=== PATIENT | male | born 1970 | race Caucasian/White ===

== ENCOUNTER 2018-08-15 15:00 | Day surgery (SDC) | payer OTHER ==
[2018-08-15 12:52] LABS: Anion Gap 10 mmol/L (6-16); Blood Urea Nitrogen 14 mg/dL (8-24); CO2, Blood 24 mmol/L (21-32); Calcium, Blood 8.6 mg/dL (8.5-10.1); Chloride, Blood 108 mmol/L (98-108); Creatinine, Blood 0.74 mg/dL (0.60-1.20); Glomerular Filtration Rate >60 (60-); Glucose, Blood 95 mg/dL (70-99); Sodium, Blood 142 mmol/L (136-145)
[~2018-08-15 15:00] MED LIST: AMIT75 PO
--- NOTE | 2018-08-15 15:51 | NUR ---
ACCESS CLERK RN LESLEY) AT BEDSIDE REPORT DONE.
--- NOTE | 2018-08-15 16:00 | NUR ---
IS AT BEDSIDE. PT CONTINUES TO BE IN ALOT OF PAIN.
== END 2018-08-15 19:00 | disposition home or self-care (01) ==
LOC: ORSCMMR 15:00
PROVIDERS: Orthopaedic Surgery
PROC: 0J9K0ZZ Drainage of Left Hand Subcutaneous Tissue and Fascia, Open Approach (ICD-10-PCS; principal; 2018-08-15 16:30)
DX: M79.5 Residual foreign body in soft tissue (principal); M65.842 Other synovitis and tenosynovitis, left hand; M65.042 Abscess of tendon sheath, left hand; I10 Essential (primary) hypertension; K21.9 Gastro-esophageal reflux disease without esophagitis; E66.9 Obesity, unspecified; Z68.32 Body mass index [BMI] 32.0-32.9, adult
CPT/HCPCS: 36415; 80048; 87070; 87075; 87205; 93005; 93010; A9270-GY; J0690; J1100; J1170; J1885; J2060; J2250; J2405; J3010; J7120

== ENCOUNTER 2019-02-11 11:44 | Emergency (ER) | payer OTHER ==
[~2019-02-11] VITALS: Ht 200.7 cm; Wt 122.5 kg
[2019-02-11 12:56] LABS: BASOPHILS ABSOLUTE AUTO 0.12 K/mm3 (0.00-0.23); BASOPHILS PERCENT AUTO 1 % (0-2); EOSINOPHILS ABSOLUTE AUTO 0.23 K/mm3 (0.00-0.68); EOSINOPHILS PERCENT AUTO 2 % (0-6); Hematocrit 47.8 % (37.0-53.0); Hemoglobin 16.1 g/dL (13.5-17.5); IMMATURE GRAN ABSOLUTE AUTO 0.08 K/mm3 (0.00-0.10); IMMATURE GRAN PERCENT AUTO 1 % (0-1); LYMPHOCYTES ABSOLUTE AUTO 2.05 K/mm3 (0.84-5.20); LYMPHOCYTES PERCENT AUTO 18 % (21-46); MONOCYTES PERCENT AUTO 5 % (4-13); Mean Corpuscular HGB 28.8 pg (26.0-34.0); Mean Corpuscular HGB Conc 33.7 g/dL (31.5-36.5); Mean Corpuscular Volume 86 fL (80-100); Mean Platelet Volume 8.4 fL (9.1-12.4); NEUTROPHILS PERCENT AUTO 73 % (41-73); Platelet Count 780 K/mm3 (150-400); RDW Coefficient Variation 14.5 % (11.7-14.2); RDW Standard Deviation 44.9 fL (35.1-46.3); Red Blood Cell Count 5.59 M/mm3 (4.30-5.90); White Blood Cell Count 11.48 K/mm3 (4.00-11.30)
[2019-02-11 13:20] LABS: Alanine Aminotransfer (ALT/SGP 52 U/L (12-78); Albumin, Blood 3.8 g/dL (3.4-5.0); Albumin/Globulin Ratio 1.1 (0.8-1.8); Alk Phos 72 U/L (50-136); Anion Gap 2 mmol/L (6-16); Aspartate Aminotrans (AST/SGOT 31 U/L (12-37); Bilirubin, Total 0.3 mg/dL (0.1-1.0); Blood Urea Nitrogen 17 mg/dL (8-24); CO2, Blood 28 mmol/L (21-32); Calcium, Blood 9.1 mg/dL (8.5-10.1); Chloride, Blood 108 mmol/L (98-108); Creatinine, Blood 0.85 mg/dL (0.60-1.20); Globulin, Blood 3.5 g/dL (2.2-4.0); Glomerular Filtration Rate >60 (60-); Glucose, Blood 116 mg/dL (70-99); Potassium, Blood 3.9 mmol/L (3.5-5.5); Sodium, Blood 138 mmol/L (136-145); Total Protein, Blood 7.3 g/dL (6.4-8.2)
[2019-02-11 13:29] LABS: Source, Urine Clean Catch
[2019-02-11 13:43] LABS: Bilirubin, Urine Neg (Neg); Blood, Urine Neg (Neg); Glucose Qualitative, Urine Neg (Neg); Ketones, Urine Neg (Neg); Leukocyte Esterase, Urine Neg (Neg); Nitrite, Urine Neg (Neg); Protein, Urine Neg (Neg); Urobilinogen, Urine NORM (Normal)
[2019-02-11 13:59] LABS: Appearance, Urine Clear (Clear); Color, Urine Yellow (P-Yellow)
[2019-02-11] MEDS ORDERED: AMIT10 PO (14:57)
[2019-02-11] MEDS ORDERED: CYCL10 PO (17:07)
[2019-02-11] MEDS ORDERED: LIDO700A20 TOP (17:07)
[2019-02-11] MEDS ORDERED: IBU800 MG PO (17:07)
== END 2019-02-11 17:26 | disposition home or self-care (01) ==
LOC: ER 11:44
PROVIDERS: Physician Assistant
DX: R10.9 Unspecified abdominal pain (principal)
CPT/HCPCS: 36415; 74177; 74183; 80053; 81003; 83690; 85025; 86850; 86900; 86901; 96374-59; 96375-59; 99284-25; A9581; J1170; J1885; J3010; Q9967

== ENCOUNTER → 2019-02-18 | Outpatient (CLI) | payer OTHER ==
[~2019-02-18] MED LIST changes: +AMIT10 PO; +Amitriptyline H25 MG PO; +CYCL10 PO; +DOXY100 PO; +IBU800 MG PO; +LIDO700A20 TOP; +[UNRECOGNIZED DRUG - REMARK]
[2019-02-18 14:29] LABS: BASOPHILS ABSOLUTE AUTO 0.14 K/mm3 (0.00-0.23); BASOPHILS PERCENT AUTO 1 % (0-2); EOSINOPHILS ABSOLUTE AUTO 0.24 K/mm3 (0.00-0.68); EOSINOPHILS PERCENT AUTO 2 % (0-6); Hematocrit 46.6 % (37.0-53.0); Hemoglobin 15.9 g/dL (13.5-17.5); IMMATURE GRAN ABSOLUTE AUTO 0.07 K/mm3 (0.00-0.10); IMMATURE GRAN PERCENT AUTO 1 % (0-1); LYMPHOCYTES ABSOLUTE AUTO 1.57 K/mm3 (0.84-5.20); LYMPHOCYTES PERCENT AUTO 13 % (21-46); MONOCYTES ABSOLUTE AUTO 0.68 K/mm3 (0.16-1.47); MONOCYTES PERCENT AUTO 6 % (4-13); Mean Corpuscular HGB 29.2 pg (26.0-34.0); Mean Corpuscular HGB Conc 34.1 g/dL (31.5-36.5); Mean Corpuscular Volume 86 fL (80-100); Mean Platelet Volume 8.5 fL (9.1-12.4); NEUTROPHILS ABSOLUTE AUTO 9.04 K/mm3 (1.96-9.15); NEUTROPHILS PERCENT AUTO 77 % (41-73); Platelet Count 808 K/mm3 (150-400); RDW Coefficient Variation 14.6 % (11.7-14.2); RDW Standard Deviation 45.4 fL (35.1-46.3); Red Blood Cell Count 5.44 M/mm3 (4.30-5.90); White Blood Cell Count 11.74 K/mm3 (4.00-11.30)
[2019-02-18 14:39] LABS: Alanine Aminotransfer (ALT/SGP 72 U/L (12-78); Albumin, Blood 3.8 g/dL (3.4-5.0); Alk Phos 86 U/L (40-126); Anion Gap 9 mmol/L (6-16); Aspartate Aminotrans (AST/SGOT 41 U/L (12-37); Bilirubin, Total 0.4 mg/dL (0.1-1.0); Blood Urea Nitrogen 15 mg/dL (8-24); CO2, Blood 27 mmol/L (21-32); Calcium, Blood 8.8 mg/dL (8.5-10.1); Chloride, Blood 103 mmol/L (98-108); Creatinine, Blood 1.07 mg/dL (0.60-1.20); Globulin, Blood 3.8 g/dL (2.2-4.0); Glomerular Filtration Rate >60 (60-); Glucose, Blood 102 mg/dL (70-99); Potassium, Blood 4.1 mmol/L (3.5-5.5); Sodium, Blood 139 mmol/L (136-145); Total Protein, Blood 7.6 g/dL (6.4-8.2)
== END | disposition home or self-care (01) ==
LOC: LAB SHORT 14:25 → LAB EV 14:25
PROVIDERS: Physician Assistant
DX: S80.12XA Contusion of left lower leg, initial encounter (principal)
CPT/HCPCS: 80053; 85025; 87040

== ENCOUNTER → 2019-02-20 | Outpatient (CLI) | payer OTHER ==
[2019-02-20 17:29] LABS: BASOPHILS ABSOLUTE AUTO 0.12 K/mm3 (0.00-0.23); BASOPHILS PERCENT AUTO 1 % (0-2); EOSINOPHILS ABSOLUTE AUTO 0.27 K/mm3 (0.00-0.68); EOSINOPHILS PERCENT AUTO 2 % (0-6); Hematocrit 48.1 % (37.0-53.0); Hemoglobin 16.3 g/dL (13.5-17.5); IMMATURE GRAN ABSOLUTE AUTO 0.13 K/mm3 (0.00-0.10); IMMATURE GRAN PERCENT AUTO 1 % (0-1); LYMPHOCYTES ABSOLUTE AUTO 2.32 K/mm3 (0.84-5.20); LYMPHOCYTES PERCENT AUTO 18 % (21-46); MONOCYTES ABSOLUTE AUTO 0.83 K/mm3 (0.16-1.47); MONOCYTES PERCENT AUTO 7 % (4-13); Mean Corpuscular HGB 28.8 pg (26.0-34.0); Mean Corpuscular HGB Conc 33.9 g/dL (31.5-36.5); Mean Corpuscular Volume 85 fL (80-100); Mean Platelet Volume 8.4 fL (9.1-12.4); NEUTROPHILS ABSOLUTE AUTO 9.07 K/mm3 (1.96-9.15); NEUTROPHILS PERCENT AUTO 71 % (41-73); Platelet Count 926 K/mm3 (150-400); RDW Coefficient Variation 14.4 % (11.7-14.2); RDW Standard Deviation 44.1 fL (35.1-46.3); Red Blood Cell Count 5.66 M/mm3 (4.30-5.90); White Blood Cell Count 12.74 K/mm3 (4.00-11.30)
== END ==
LOC: LAB EV 17:24 → LAB SHORT 17:24
PROVIDERS: Physician Assistant
DX: R60.0 Localized edema (principal)
CPT/HCPCS: 85025

== ENCOUNTER 2019-02-21 09:16 | Inpatient (IN) | payer OTHER ==
[~2019-02-21] VITALS: Ht 200.7 cm; Wt 122.9 kg
[~2019-02-21 09:16] MED LIST changes: -Amitriptyline H25 MG PO; -DOXY100 PO; -[UNRECOGNIZED DRUG - REMARK]
[2019-02-21] MEDS ORDERED: DOXY100 PO (09:47)
[2019-02-21] MEDS ORDERED: [UNRECOGNIZED DRUG - REMARK] (09:47)
[2019-02-21 11:11] LABS: Alanine Aminotransfer (ALT/SGP 114 U/L (12-78); Albumin, Blood 3.6 g/dL (3.4-5.0); Alk Phos 97 U/L (50-136); Anion Gap 7 mmol/L (6-16); Aspartate Aminotrans (AST/SGOT 58 U/L (12-37); Bilirubin, Total 0.3 mg/dL (0.1-1.0); Blood Urea Nitrogen 14 mg/dL (8-24); Bun/Creatinine Ratio 16.8 (12.0-20.0); CO2, Blood 26 mmol/L (21-32); Calcium, Blood 8.9 mg/dL (8.5-10.1); Chloride, Blood 108 mmol/L (98-108); Creatinine, Blood 0.83 mg/dL (0.60-1.20); Globulin, Blood 3.6 g/dL (2.2-4.0); Glomerular Filtration Rate >60 (60-); Glucose, Blood 132 mg/dL (70-99); Potassium, Blood 3.9 mmol/L (3.5-5.5); Sodium, Blood 141 mmol/L (136-145); Total Protein, Blood 7.2 g/dL (6.4-8.2)
[2019-02-21 13:12] LABS: BASOPHILS ABSOLUTE AUTO 0.13 K/mm3 (0.00-0.23); BASOPHILS PERCENT AUTO 1 % (0-2); EOSINOPHILS ABSOLUTE AUTO 0.27 K/mm3 (0.00-0.68); EOSINOPHILS PERCENT AUTO 3 % (0-6); Hematocrit 46.9 % (37.0-53.0); Hemoglobin 15.5 g/dL (13.5-17.5); IMMATURE GRAN ABSOLUTE AUTO 0.08 K/mm3 (0.00-0.10); IMMATURE GRAN PERCENT AUTO 1 % (0-1); LYMPHOCYTES ABSOLUTE AUTO 1.54 K/mm3 (0.84-5.20); LYMPHOCYTES PERCENT AUTO 15 % (21-46); MONOCYTES ABSOLUTE AUTO 0.63 K/mm3 (0.16-1.47); MONOCYTES PERCENT AUTO 6 % (4-13); Mean Corpuscular HGB 29.3 pg (26.0-34.0); Mean Platelet Volume 8.4 fL (9.1-12.4); NEUTROPHILS ABSOLUTE AUTO 7.99 K/mm3 (1.96-9.15); NEUTROPHILS PERCENT AUTO 75 % (41-73); Platelet Count 843 K/mm3 (150-400); RDW Coefficient Variation 14.5 % (11.7-14.2); RDW Standard Deviation 46.7 fL (35.1-46.3); Red Blood Cell Count 5.29 M/mm3 (4.30-5.90); White Blood Cell Count 10.64 K/mm3 (4.00-11.30)
[2019-02-21 13:13] LABS: Mean Corpuscular Volume 89 fL (80-100)
[2019-02-21] MEDS ORDERED: Amitriptyline H25 MG PO (16:56)
--- NOTE | 2019-02-22 01:58 | NUR ---
02/21/192013 PT SITTING UP IN BED, VISITOR IN ROOM. PT REPORTS PAIN IN LEGS AND BACK AT 7/10. PT HAS EDEMA AND REDNESS IN BOTH LEGS, THE L LEG IS MORE SWOLLEN THAN THE RIGHT. NO OPEN SORES AT THIS TIME. PAIN MEDICATION NOT DUE AT THIS TIME, WILL CALL DR REGARDING PAIN CONTROL NOT ADEQUATE ENOUGH FOR THIS PATIENT AND F/U ON ANY NEW ORDERS. NO OTHER APPARENT SIGNS OF DISTRESS AT THIS TIME. CALL LIGHT IS IN REACH.
--- NOTE | 2019-02-22 02:08 | NUR ---
02/21/19 3782 PAIN MEDICATION GIVEN PER 'S ORDERS. WILL EVAL FOR EFFECT.
--- NOTE | 2019-02-22 02:16 | NUR ---
PT TOOK A SHOWER A LITTLE WHILE AGO. HE IS CURRENTLY LYING IN BED, EYES CLOSED, APPEARS TO BE RESTING. BREATHING IS EVEN, UNLABORED. NO APPARENT SIGNS OF DISTRESS. CALL LIGHT IS IN REACH.
--- NOTE | 2019-02-22 02:17 | NUR ---
PT TOOK A SHOWER A LITTLE WHILE AGO. PT CURRENTLY DOWNSTAIRS GETTING A SNACK FROM THE VENDING MACHINE. NO APPARENT SIGNS OF DISTRESS. WILL CHECK ON PT AGAIN WHEN HE GETS BACK TO HIS ROOM.
--- NOTE | 2019-02-22 04:33 | NUR ---
PT LYING IN BED, EYES CLOSED, APPEARS TO BE RESTING. BREATHING IS EVEN, UNLABORED. NO APPARENT SIGNS OF DISTRESS. CALL LIGHT IS IN REACH.
--- NOTE | 2019-02-22 05:16 | NUR ---
PT IS AAO X 4. ON RA. HAS BILAT LE EDEMA AND REDNESS WITH THE L LEG MORE SWOLLEN THAN THE R LEG. PT REPORTS PAIN IN HIS BACK AND LEGS, HE HAS BEEN GIVEN ULTRAM X 2.
--- NOTE | 2019-02-22 05:51 | NUR ---
PT LYING IN BED, EYES CLOSED, APPEARS TO BE RESTING. BREATHING IS EVEN, UNLABORED. NO APPARENT SIGNS OF DISTRESS. CALL LIGHT IS IN REACH. NO OTHER CHANGES THIS SHIFT.
[2019-02-22 06:26] LABS: BASOPHILS ABSOLUTE AUTO 0.13 K/mm3 (0.00-0.23); BASOPHILS PERCENT AUTO 1 % (0-2); EOSINOPHILS ABSOLUTE AUTO 0.28 K/mm3 (0.00-0.68); EOSINOPHILS PERCENT AUTO 3 % (0-6); Hematocrit 45.6 % (37.0-53.0); Hemoglobin 14.8 g/dL (13.5-17.5); IMMATURE GRAN ABSOLUTE AUTO 0.09 K/mm3 (0.00-0.10); IMMATURE GRAN PERCENT AUTO 1 % (0-1); LYMPHOCYTES ABSOLUTE AUTO 1.98 K/mm3 (0.84-5.20); LYMPHOCYTES PERCENT AUTO 21 % (21-46); MONOCYTES ABSOLUTE AUTO 0.73 K/mm3 (0.16-1.47); MONOCYTES PERCENT AUTO 8 % (4-13); Mean Corpuscular HGB 28.9 pg (26.0-34.0); Mean Corpuscular HGB Conc 32.5 g/dL (31.5-36.5); Mean Corpuscular Volume 89 fL (80-100); Mean Platelet Volume 8.4 fL (9.1-12.4); NEUTROPHILS ABSOLUTE AUTO 6.35 K/mm3 (1.96-9.15); NEUTROPHILS PERCENT AUTO 67 % (41-73); Platelet Count 752 K/mm3 (150-400); RDW Coefficient Variation 14.4 % (11.7-14.2); RDW Standard Deviation 46.6 fL (35.1-46.3); Red Blood Cell Count 5.12 M/mm3 (4.30-5.90); White Blood Cell Count 9.56 K/mm3 (4.00-11.30)
--- NOTE | 2019-02-22 18:25 | NUR ---
SHIFT SUMMARY PT INDEPENDENT IN ROOM. TRAMADOL GIVEN ONCE AND REPORTS THE PAIN IS SLOWLY IMPROVING. LLE DOESN'T APPEAR RED WITHIN DRAWN LINE BUT SWELLING REMAINS. REPORTS RLE IS SWOLLEN WELL WHICH ISN'T BASELINE. REPORTS NO BM FOR SEVERAL DAYS. PRUNE JUICE GIVEN. AT BEDSIDE MOST OF AFTERNOON. SHOWER TAKEN AND TOLERATED WITH NO PROBLEM. REPORTS A "BACK THAT WENT OUT" THAT IS IMPROVING AND K PAD HELPS WITH DISCOMFORT. KEEPING LLE ELEVATED WHEN NOT UP WALKING AROUND.
[2019-02-23 05:12] LABS: Vancomycin, Trough 14.6 ug/mL (5.0-10.0)
--- NOTE | 2019-02-23 06:12 | NUR ---
SUMMARY: A/OX4, INDEPENDENT IN ROOM AND CALLS APPROPRIATELY. BLE'S REMAIN EDEMATOUS BUT NO FURTHER REDNESS OBSERVED WITHIN MARKED REGION. LLE SWELLING >RLE AND IV ABX PROVIDED. TRAMADOL RECIEVED PRN X1 FOR TOLERABLE CONTROL OF L.LEG PAIN AND HEATING PAD UTILIZED BY PT PRN FOR CHRONIC BACK PAIN. PT ALSO TOOK AMITRIPTYLINE AT HS PRN PER PT REQUEST FOR SLEEP AND DENIED NEEDING MELATONIN. NO ACUTE CHANGES, VSS/AFEBRILE. WCTM AND REPORT TO DAY RN.
[2019-02-23] MEDS ORDERED: DOXY100 PO (07:59)
--- NOTE | 2019-02-23 10:55 | NUR ---
DISCHARGE INSTRUCTIONS COMPLETED AND DISCUSSED WITH PT EXPRESSING UNDERSTANDING. SCRIPT FAXED TO [facility]. HERE TO PICK PT UP. REPORTS OBTAINING NEW INSURANCE ON February AND WILL LOCATE A NEW PCP FOR PT. CHOSE TO WALK TO EXIT.
== END 2019-02-23 10:28 | disposition home or self-care (01) | DRG 872 ==
LOC: ER 09:16 → MEDS 12:25 → ENPENDDIS 02-23 09:01 → MEDS 02-23 10:28
PROVIDERS: Physician Assistant; ADMIT Hospitalist
DX: A41.9 Sepsis, unspecified organism (principal); L03.116 Cellulitis of left lower limb; F19.10 Other psychoactive substance abuse, uncomplicated; D47.3 Essential (hemorrhagic) thrombocythemia; I10 Essential (primary) hypertension; T36.1X5A Adverse effect of cephalosporins and other beta-lactam antibiotics, initial encounter; L27.0 Generalized skin eruption due to drugs and medicaments taken internally
CPT/HCPCS: 36415; 80053; 80202; 83605; 85025; 87040; 96361; 96365; 99284-25; A9270; J1650; J3370; J7050; J7120; Q0163

== ENCOUNTER → 2019-10-09 | Outpatient (CLI) | payer OTHER ==
[~2019-10-09] MED LIST changes: +Amitriptyline H25 MG PO; +DOXY100 PO; +[UNRECOGNIZED DRUG - REMARK]
== END | disposition home or self-care (01) ==
DX: N39.0 Urinary tract infection, site not specified (principal)

== ENCOUNTER 2023-01-22 13:07 | Day surgery (SDC) | payer OTHER ==
[~2023-01-22] VITALS: Ht 200.7 cm; Wt 115.1 kg
[2023-01-22] MEDS ORDERED: Cymbalta20 MG (13:45)
[2023-01-22] MEDS ORDERED: HYDURE500 (13:45)
[2023-01-22] MEDS ORDERED: SEROQUEL (13:46)
[2023-01-22] MEDS ORDERED: VALACYCLOVIR1000 M1 (13:46)
[2023-01-22 16:53] VITALS: BP 154/91
--- NOTE | 2023-01-22 16:54 | NUR ---
01/22/23 1654 Lilia Friedman IV AT 1640/WNL
== END 2023-01-22 16:47 | disposition home or self-care (01) ==
LOC: ORSCSDS 13:07
PROVIDERS: Internal Medicine Gastroenterology
PROC: 0DBH8ZX Excision of Cecum, Via Natural or Artificial Opening Endoscopic, Diagnostic (ICD-10-PCS; principal; 2023-01-22 14:30)
PROC: 0DBM8ZX Excision of Descending Colon, Via Natural or Artificial Opening Endoscopic, Diagnostic (ICD-10-PCS; principal; 2023-01-22 14:30)
PROC: 0DBK8ZX Excision of Ascending Colon, Via Natural or Artificial Opening Endoscopic, Diagnostic (ICD-10-PCS; principal; 2023-01-22 14:30)
DX: Z12.11 Encounter for screening for malignant neoplasm of colon (principal); D12.2 Benign neoplasm of ascending colon; K51.40 Inflammatory polyps of colon without complications; D12.0 Benign neoplasm of cecum; D12.4 Benign neoplasm of descending colon; K57.30 Diverticulosis of large intestine without perforation or abscess without bleeding; Z79.899 Other long term (current) drug therapy
CPT/HCPCS: 88305; J2704; J7120